=== PATIENT | male | born 1970 | race Caucasian/White ===

== ENCOUNTER 2017-09-19 19:16 | Emergency (ER) | payer OTHER ==
[~2017-09-19] VITALS: Ht 182.9 cm; Wt 90.7 kg
[2017-09-19] MEDS ORDERED: GLUCOPHAGE1000 MG PO (19:42)
[2017-09-19] MEDS ORDERED: CRESTOR20 MG PO (19:42)
[2017-09-19] MEDS ORDERED: IMDUR 60 MG TAB60 M1 PO (19:42)
[2017-09-19] MEDS ORDERED: CHILDREN'S ASPI81 MG PO (19:42)
[2017-09-19] MEDS ORDERED: COREG CR20 MG PO (19:42)
[2017-09-19] MEDS ORDERED: FISH OIL 1,001000 M2 PO (19:43)
[2017-09-19 21:46] VITALS: BP 124/82
== END 2017-09-19 22:01 | disposition home or self-care (01) ==
LOC: ER 19:16
DX: R51 Headache (principal); I10 Essential (primary) hypertension; E78.5 Hyperlipidemia, unspecified; Z88.0 Allergy status to penicillin